=== PATIENT | female | born 1945 | race Caucasian/White ===

== ENCOUNTER 2017-07-08 07:30 | Inpatient (IN) ==
[2017-06-30 17:08] LABS: Appearance,Urine CLOUDY; Bacteria,Urine 0 /hpf (0); Bilirubin,Urine NEG (NEG); Color,Urine YELLOW; Glucose,Urine (UA) NEGATIVE (NEG); Leukocyte Esterase,Urine 25 /uL (NEG); Mucus,Urine FEW /hpf (0); Nitrate,Urine NEG (NEG); Protein,Urine NEG (NEG); Specific Gravity,Urine 1.021 (1.000-1.035); Urine Blood NEG mg/dL (<0.03); Urine RBC 0 /hpf (0-1); Urine Squamous Epithelial Cell 5 /hpf (0-4); Urine WBC 3 /hpf (0-4); Urobilinogen,Urine NEG (NEG)
[2017-06-30 17:51] LABS: Basophils # (Auto) 0 K/mcL (0.0-0.3); Basophils % (Auto) 0.4 % (0.0-2.0); Eosinophils # (Auto) 0.1 K/mcL (0.0-0.7); Eosinophils % (Auto) 1.2 % (0.0-7.0); Granulocytes % (Auto) 58.1 % (38.0-78.0); Lymphocytes # (Auto) 2.7 K/mcL (1.5-4.8); Lymphocytes % (Auto) 31.4 % (15.5-49.0); Mean Cell Volume 96.6 fL (80.0-100.0); Mean Corpuscular HGB Conc 33.1 g/dL (31.0-36.0); Mean Corpuscular Hemoglobin 31.9 pg (26.0-34.0); Monocytes # (Auto) 0.8 K/mcL (0.1-0.9); Monocytes % (Auto) 8.9 % (1.0-12.0); Platelet Count 252 K/mcL (140-440); RBC 4.37 M/mcL (4.00-5.20); Red Cell Distribution Width 14.1 % (11.5-14.5)
[2017-06-30 18:04] LABS: Blood Urea Nitrogen 17 mg/dl (8-23)
[~2017-07-08 07:30] MED LIST: ACETAMINOPHEN 500 MG TABLET PO SCH; CELECOXIB 200 MG CAPSULE PO SCH; ceFAZolin 1 GM VIAL IV SCH
[2017-07-08] MEDS ORDERED: GLYCOPYRROLATE 0.2 MG/ML VIAL IV ONE (10:45)
[2017-07-08] MEDS ORDERED: PROPOFOL 200 MG/20 ML VIAL IV ONE (10:45)
[2017-07-08] MEDS ORDERED: LIDOCAINE HCL/PF 100 MG/5 ML SYRINGE IV ONE (10:45)
[2017-07-08] MEDS ORDERED: DEXAMETHASONE 10 MG/ML VIAL IV ONE (10:45)
[2017-07-08] MEDS ORDERED: TRANEXAMIC ACID 1,000 MG/10 ML VIAL IV ONE ×2 (10:45→12:09)
[2017-07-08] MEDS ORDERED: fentaNYL 100 MCG/2 ML VIAL IV ONE (10:45)
[2017-07-08] MEDS ORDERED: ONDANSETRON 4 MG/2 ML VIAL IV ONE (10:45)
[2017-07-08] MEDS ORDERED: MIDAZOLAM 2 MG/2 ML VIAL IV ONE (10:45)
[2017-07-08] MEDS ORDERED: GENTAMICIN SULFATE 800 MG/20 ML VIAL IR ONE (11:16)
[2017-07-08] MEDS ORDERED: diphenhydrAMINE 50 MG/ML VIAL IV PRN (11:55)
[2017-07-08] MEDS ORDERED: IPRATROPIUM/ALBUTEROL 3 ML AMPUL.NEB NEB PRN (11:55)
[2017-07-08] MEDS ORDERED: ePHEDrine 50 MG/ML AMPUL IV PRN (11:55)
[2017-07-08] MEDS ORDERED: ATROPINE SULFATE 0.4 MG/ML VIAL IV PRN (11:55)
[2017-07-08] MEDS ORDERED: ONDANSETRON 4 MG/2 ML VIAL IV PRN ×2 (11:55→12:09)
[2017-07-08] MEDS ORDERED: FLUMAZENIL 0.1 MG/ML ML IV PRN (11:55)
[2017-07-08] MEDS ORDERED: METOPROLOL TARTRATE 5 MG/5 ML VIAL IV PRN (11:55)
[2017-07-08] MEDS ORDERED: BENZOCAINE/MENTHOL 1 LOZENGE PO PRN ×2 (11:55→12:09)
[2017-07-08] MEDS ORDERED: NALOXONE HCL 0.4 MG/ML VIAL IV PRN (11:55)
[2017-07-08] MEDS ORDERED: METHOCARBAMOL 1,000 MG/10 ML VIAL IV PRN (11:55)
[2017-07-08] MEDS ORDERED: LACTATED RINGERS 1,000 ML IV SCH (12:00)
[2017-07-08] MEDS ORDERED: BISACODYL 10 MG SUPP.RECT PR PRN (12:09)
[2017-07-08] MEDS ORDERED: FLEETS ADULT ENEMA PR PRN (12:09)
[2017-07-08] MEDS ORDERED: POLYETHYLENE GLYCOL 3350 17 GM PACKET PO PRN (12:09)
[2017-07-08] MEDS ORDERED: ACETAMINOPHEN 325 MG TABLET PO PRN (12:09)
[2017-07-08] MEDS ORDERED: TEMAZEPAM 15 MG CAPSULE PO PRN (12:09)
[2017-07-08] MEDS ORDERED: MAGNESIUM HYDROXIDE 30 ML ORAL.SUSP PO PRN (12:09)
[2017-07-08] MEDS ORDERED: [UNRECOGNIZED DRUG - OTHER] PO PRN (12:21)
[2017-07-08] MEDS ORDERED: HYDROCODONE PO PRN (12:21)
[2017-07-08] MEDS ORDERED: traMADol 50 MG TABLET PO PRN (12:21)
[2017-07-08] MEDS ORDERED: CHLORPHENIRAMINE PO PRN (12:21)
[2017-07-08] MEDS: fentaNYL 100 MCG/2 ML VIAL IV PRN ×2 (12:25→12:34)
[2017-07-08] MEDS: HYDROmorphone 2 MG/ML SYRINGE IV PRN ×5 (12:55→18:20)
[2017-07-08] MEDS ORDERED: ACETAMINOPHEN 1,000 MG/100 ML BOTTLE IV ONE (13:04)
[2017-07-08] MEDS ORDERED: KETOROLAC 15 MG/ML VIAL IV ONE (13:04)
--- NOTE | 2017-07-08 13:35 | XRay Report ---
HISTORY: Reason for Exam:post op FINDINGS: Patient has a well-positioned recently inserted right hip prosthesis. No fracture is present. There is a well-positioned chronically indwelling left hip prosthesis as well. There are screws and rods in the lumbar spine following prior laminectomy and fusion. IMPRESSION: Well-positioned new right hip prosthesis Interpreted and Authenticated by: Vern Mckeon 07/08/17
--- NOTE | 2017-07-08 13:52 | Brief Operative Note ---
Date of procedure: 07/08/17 Pre-op diagnosis: Right hip djd Post-op diagnosis: same Procedure: right yohana with cementless yohana on cup and stem Grafts/Implants: Yes Anesthesia: GETA Complications: none Surgeon: Richard Miles Community [employer] Coordinator: Andrzej Stratton Estimated blood loss (cc): 20 Specimens Removed/Pathology: none sent Condition: stable Disposition: PACU
[2017-07-08] MEDS: 0.45 % SODIUM CHLORIDE 1,000 ML IV SCH (14:56)
[2017-07-08] MEDS: 0.9 % SODIUM CHLORIDE 10 ML SYRINGE IV SCH (14:57)
[2017-07-08] MEDS: KETOROLAC 15 MG/ML VIAL IV PRN (14:58)
[2017-07-08] MEDS: HYDROcodone/APAP 10/325MG TABLET PO PRN ×2 (20:28→22:50)
[2017-07-08] MEDS: DOCUSATE SODIUM 100 MG CAPSULE PO SCH (20:28)
[2017-07-08] MEDS: CALCIUM (OYSTER SHELL) 500 MG TABLET PO SCH (20:28)
[2017-07-08] MEDS: ASPIRIN 325 MG ENTERIC COATED TABLET PO SCH (20:28)
[2017-07-08] MEDS ORDERED: SENNOSIDES 1 TABLET PO SCH (21:00)
[2017-07-08] MEDS ORDERED: SIMVASTATIN 10 MG TABLET PO SCH (21:00)
[2017-07-08] MEDS ORDERED: clonazePAM 0.5 MG TABLET PO SCH (21:00)
[2017-07-08] MEDS: ceFAZolin 1 GM VIAL IV SCH (21:55)
[2017-07-08] MEDS: traZODone HCL 50 MG TABLET PO SCH (23:12)
[2017-07-09] MEDS: 0.9 % SODIUM CHLORIDE 10 ML SYRINGE IV SCH ×3 (00:54→14:23)
[2017-07-09] MEDS: HYDROcodone/APAP 10/325MG TABLET PO PRN ×4 (01:16→11:21)
[2017-07-09] MEDS: traZODone HCL 50 MG TABLET PO SCH (01:20)
[2017-07-09] MEDS: KETOROLAC 15 MG/ML VIAL IV PRN (01:23)
[2017-07-09] MEDS: ceFAZolin 1 GM VIAL IV SCH (03:16)
[2017-07-09] MEDS: 0.45 % SODIUM CHLORIDE 1,000 ML IV SCH ×2 (03:26→14:24)
[2017-07-09] MEDS ORDERED: LEVOTHYROXINE 50 MCG TABLET PO SCH (07:30)
[2017-07-09] MEDS ORDERED: PANTOPRAZOLE 40 MG TABLET PO SCH (07:30)
--- NOTE | 2017-07-09 07:35 | Orthopedic Progress Note ---
Subjective Patient information: Note initiated : 07/09/17 at 7:34 am Service Date, if different from initiated Date: [] Patient: Ofe Myers 72 y/o F admitted on 07/08/17 for Right Total Hip Arthroplasty. Chief Complaint: [Pt is stable this morning on post operative day 1 without any significant concerns or complaints. Patients vital signs have remained stable. Patients dressing is dry and exhibits a grossly intact neurovascular and neuromotor exam. Patients 10 point ROS is otherwise negative. ] Objective Vital signs: Vital Signs Temp Pulse Resp BP BP Pulse Ox 07/09/17 07:32 95 07/09/17 05:50 93 07/09/17 03:25 97.3 F 76 12 104/55 95 07/09/17 03:24 95 07/08/17 23:32 97.3 F 73 10 L 112/68 95 07/08/17 22:00 97 07/08/17 21:40 95 07/08/17 21:00 73 112/72 95 07/08/17 20:00 97.4 F 79 10 L 100/65 95 07/08/17 16:00 94 07/08/17 15:13 94/61 94 07/08/17 15:12 87/60 95 07/08/17 14:42 87/60 95 07/08/17 14:09 96 07/08/17 14:01 120/73 96 07/08/17 13:58 150/67 94 07/08/17 13:41 127/83 92 07/08/17 13:20 98.3 F 104 H 16 154/73 92 07/08/17 12:55 97.3 F 100 H 18 154/73 92 07/08/17 12:40 104 H 17 126/54 100 07/08/17 12:25 97.3 F 104 H 16 154/73 92 07/08/17 08:10 96.9 F L 20 159/99 98 Intake and Output 07/08/17 07/09/17 07/09/17 21:59 05:59 13:59 Intake Total 1350 / 1350 Output Total 600 / 600 400 / 400 350 / 350 Balance -600 / -600 950 / 950 -350 / -350 Intake: IV 1000 / 1000 Sodium Chloride 0.45% 1,000 ml 1000 / 1000 @ 100 mls/hr IV .Q10H [facility] Rx#: [id number] Oral 350 / 350 Output: Void Amount 600 / 600 400 / 400 350 / 350 Other: # Voids 1 Weight 176 lb 8 oz Intake & Output: Intake & Output 07/08/17 07/09/17 07/09/17 21:59 05:59 13:59 Intake Total 1350 / 1350 Output Total 600 / 600 400 / 400 350 / 350 Balance -600 / -600 950 / 950 -350 / -350 Weight 176 lb 8 oz Intake: IV 1000 / 1000 Sodium Chloride 0.45% 1,000 ml 1000 / 1000 @ 100 mls/hr IV .Q10H [facility] Rx#: [id number] Oral 350 / 350 Output: Void Amount 600 / 600 400 / 400 350 / 350 Other: # Voids 1 Incision: Yes healing Incision clean and dry: Yes Dressing: Yes clean Weight bearing status: full Neurological exam IM: Yes motor sensory intact, Yes neurovascular intact Extremities exam IM: Yes Foot pink and warm, Yes neurovascular intact - Labs CBC & BMP: 07/09/17 06:08 06/30/17 15:41 Labs: Orthopedic Labs 06/30/17 15:42 PT 12.9 INR 1.0 APTT 28 07/09/17 06/30/17 06:08 15:42 Hgb 14.0 Hct 34.1 L 42.2 Assessment and Plan (1) Hx of total hip arthroplasty The patient has been educated regarding dressing care, Physical Therapy recommendations, home exercises, restrictions, and follow up appointments. The patient has had all necessary DME prescribed. The patient has remained stable during their hospital course. The patient was discharge with a stable exam. Status: Acute
--- NOTE | 2017-07-09 07:38 | Discharge Summary ---
Ortho Discharge - [facility] - Patient Instructions Diet: Regular Diet Activity: activity as tolerated, weight bearing as tolerated Total Hip Protocol: Follow activity instructions as provided by Physical Therapy. Dressing Care: May shower in 2 days - Problem Maintenance (1) Hx of total hip arthroplasty Status: Acute - Follow Up Plan Disposition: Home, Self-Care Prognosis: Good Rehab Potential: Good I certify that the patient requires SNF services: No Overall status at discharge: patient is progressing back to baseline - Orders For Discharge Prescriptions: Aspirin [Ecotrin] 325 mg PO BID #60 tab.ec Docusate Sodium [Colace] 100 mg PO BID #60 cap HYDROcodone/APAP 10/325MG [Haugen 10/325Mg] 1 - 2 tab PO Q4HP PRN #75 tab PRN Reason: Pain
[2017-07-09] MEDS: ASPIRIN 325 MG ENTERIC COATED TABLET PO SCH (08:30)
[2017-07-09] MEDS: CALCIUM (OYSTER SHELL) 500 MG TABLET PO SCH (08:30)
[2017-07-09] MEDS: DOCUSATE SODIUM 100 MG CAPSULE PO SCH (08:30)
[2017-07-09] MEDS ORDERED: VENLAFAXINE 75 MG CAP.XL.24H PO SCH (09:00)
[2017-07-09] MEDS ORDERED: VITAMIN B COMPLEX 1 CAPSULE PO SCH (09:00)
[2017-07-09] MEDS ORDERED: VENLAFAXINE HCL PO SCH (09:00)
[2017-07-09] MEDS ORDERED: VENLAFAXINE 37.5 MG TAB.ER.24H PO SCH (09:00)
[2017-07-09] MEDS ORDERED: VITAMIN D3 1,000 UNIT TABLET PO SCH (09:00)
[2017-07-09] MEDS ORDERED: MULTIVIT,THER IRON,CA,FA & MIN 1 TABLET PO SCH (09:00)
[2017-07-09] MEDS ORDERED: GLUCOSAMINE/CHONDROITIN SULF A 1 CAP CAPSULE PO SCH (09:00)
[2017-07-09] MEDS ORDERED: MAGNESIUM OXIDE 400 MG TABLET PO SCH (09:00)
[2017-07-09] MEDS ORDERED: CRANBERRY FRUIT PO SCH (09:00)
[2017-07-10] MEDS ORDERED: VENLAFAXINE 150 MG CAP.XL.24H PO SCH (09:00)
--- NOTE | 2017-07-20 06:59 | Operative Note ---
DATE OF OPERATION: 07/08/2017 PREOPERATIVE DIAGNOSIS: Right hip degenerative arthritis. POSTOPERATIVE DIAGNOSIS: Right hip degenerative arthritis. PROCEDURE: Right total hip arthroplasty with a cementless total hip arthroplasty on cup and stem. APPROACH: Superior posterior. COMPLICATIONS: None. SURGEON: Richard Miles MD [employer] ORIGINATOR: Andrzej Stratton PA-C ANESTHESIA: General LMA anesthesia. ESTIMATED BLOOD LOSS: About 20 mL DISPOSITION: To PACU and stable. DESCRIPTION OF PROCEDURE: The patient was brought to the operating room and put to sleep with general LMA anesthesia. Once asleep, the patient had the right hip sterilely prepped and draped in the usual sterile fashion in a left lateral position. A timeout was performed. This was confirmed both by initials on the skin and x-rays, and consent form. The procedure was reviewed. A superior posterior approach then was made. Preop antibiotics and tranexamic acid had been given and confirmed. Once this was done, we dissected through the muscle layer, exposed the superior posterior capsule and this was released. We then tagged the piriformis obturator internus and the superior capsule, dislocated the hip superior posteriorly, preserving the quadratus and inferior musculature. Once done, we then made our neck cut at 32 mm from the center of hip rotation. We subluxed the hip anteriorly and reamed the acetabulum after removing the labrum. Severe arthritis was noted. At this point we then reamed up for the cup until bleeding bone. We then implanted a cementless cup with 1 screw, excellent fixation. A dual mobility liner was then placed. Once the liner was placed we then broached up the hip. A cementless stem was chosen for a right hip. This seemed to fit very nicely and then we took an x-ray to confirm the reduction. Once we made leg length measurements with intraoperative x-ray we then implanted the final implant and neck length and dual mobility head. This was reduced with excellent stability throughout the range of motion with 90 degrees of flexion. With flexion, adduction and internal rotation we were able to go up to 80 degrees with range of motion. We then repaired the capsule posteriorly with a #2 Ethibond stitch that had been placed in the capsule. We irrigated thoroughly and then closed the fascial layer of the hip with #1 StrataFix. The skin was closed with 0 Vicryl in the fatty Umang's fascia and into 2-0 Vicryl subcutaneous and then adhesive closure on the skin. The patient tolerated this well. There was no complication. Sterile bandage was applied. RBH:renetta Job ID: [id number] Doc ID: [id number] Richard Miles MD
== END 2017-07-09 14:35 | disposition home or self-care (01) | DRG 470 ==
LOC: MEDSUR 07:51
PROVIDERS: ADMIT Orthopaedic Surgery; ATTEND Orthopaedic Surgery